=== PATIENT | male | born 1990 | race Caucasian/White ===

== ENCOUNTER 2024-11-12 12:31 | Emergency (ER) | payer OTHER, SELFPAY ==
[2024-11-12 12:37] VITALS: BP 138/90
[2024-11-12 13:12] LABS: % Basophils 0.6 % (0-2); % Eosinophils 2.8 % (0-6); % Immature Granulocytes 0.2 % (0-0.5); % Lymphocytes 46.4 % (20.5-51.1); % Monocytes 9.3 % (1.7-9.3); % Neutrophils 40.7 % (42.2-75.2); Absolute Eosinophils 0.1 10^3/uL (0-0.7); Absolute Lymphocytes 2.2 10^3/uL (1.2-3.4); Absolute Monocytes 0.4 10^3/uL (0.1-0.6); Absolute Neutrophils 1.9 10^3/uL (1.4-6.5); Hemoglobin 13.5 g/dL (13.0-18.0); Mean Corp Hgb Conc. 34.6 g/dL (33.0-37.0); Mean Corpuscular Hgb 30.3 pg (27.0-31.0); Mean Corpuscular Volume 87.4 fL (80.0-94.0); Mean Platelet Volume 9.5 fL (7.4-10.4); Nucleated Red Blood Cells % 0 % (-); Platelet Count 229 10^3/uL (130-400); Red Blood Cell Count 4.46 10^6/uL (4.70-6.10); Red Cell Dist. Width 12.4 % (11.5-14.5); White Blood Cell Count 4.6 10^3/uL (4.8-10.8)
[2024-11-12 13:28] LABS: ALT (SGPT) 59 U/L (0-50); AST (SGOT) 50 U/L (17-59); Albumin 4.6 g/dl (3.5-5.0); Alkaline Phosphatase 76 U/L (38-126); Blood Urea Nitrogen 17 mg/dl (9-20); Calcium 9.1 mg/dl (8.4-10.2); Carbon Dioxide 28 mmol/L (22-30); Chloride 102 mmol/L (98-107); Glucose 111 mg/dl (70-99); Potassium 4.1 mmol/L (3.5-5.1); Sodium 138 mmol/L (135-145); Total Bilirubin 0.3 mg/dl (0.2-1.3); Total Protein 7.3 g/dl (6.3-8.2); eGFR > 60.00
[2024-11-12 13:50] VITALS: BP 128/68
[2024-11-12 13:52] VITALS: BMI 37.1
--- NOTE | 2024-11-12 14:04 | ED.GENMED ---
History of Present Illness
General
Chief Complaint: Dizziness
Source: patient
Exam Limitations: none
Time Seen by Provider: 11/12/24 13:50
History of Present Illness
History of Present Illness:
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 He was not physically exerting himself during this time. He does vape. He drinks alcohol daily
and 2 cups of coffee daily. He states his palpitations have resolved but he still notes some discomfort in the chest and left arm. He denies any pleuritic component. No recent travel or surgery. No leg swelling or calf pain. No. During this
episode he was diaphoretic and lightheaded.
Phy Exam
Physical Exam
Physical Exam:
General: Well-appearing male no acute respiratory distress
HEENT: Normocephalic atraumatic
Heart: Regular rate and rhythm no murmurs
Lungs: Clear no wheeze or rales
Abdomen is soft nontender nondistended no guarding or rebound
Extremities: No cyanosis or edema
Skin: Warm no rash
Course
Orders/Labs/Results
Orders:
Orders
11/12/24 12:33
ECG [Electrocardiogram (*1)] Urgent
Reason for Study: Palpitations
EKG- Treatment ONCE
11/12/24 12:51
Complete Blood Count/With Diff Urgent
Comprehensive Metabolic Panel Urgent
11/12/24 14:04
CR Chest - 2 Views Urgent
Comment:
Reason For Exam: chest pain
11/12/24 14:13
TSH Reflex To Free T4 Urgent
Troponin I Urgent
11/12/24 16:23
Troponin I Urgent
Abnormal Lab Results
11/12/24
12:51
WBC 4.6 L 10^3/uL
(4.8-10.8)
RBC 4.46 L 10^6/uL
(4.70-6.10)
Neutrophils % 40.7 L %
(42.2-75.2)
Glucose 111 H mg/dl
(70-99)
ALT 59 H U/L
(0-50)
11/12/24 12:51
11/12/24 12:51
Vital Signs
Initial and Last Documented VS:
Initial Vital Signs
Temp Pulse Resp BP Pulse Ox
97.7 F 75 20 138/90 99
11/12/24 12:37 11/12/24 12:37 11/12/24 12:37 11/12/24 12:37 11/12/24 12:37
Last Documented Vital Signs
Temp Pulse Resp BP Pulse Ox
97.7 F 65 12 109/63 96
11/12/24 12:37 11/12/24 17:00 11/12/24 17:00 11/12/24 17:00 11/12/24 17:00
MDM/Problems Addressed
Differential Diagnosis Includes:
Episode of chest pain palpitations left arm pain. Consider arrhythmia versus electrolyte abnormality versus thyroid disorder ACS. No PE risk factors. Low risk for PE and clinically is stable. Do not suspect PE symptoms are resolving dissection
unlikely.
EKG shows sinus rhythm without ischemic changes. Vital signs currently stable. Will check troponin TSH and chest x-ray and keep on monitor
*Critical Care Note
Total Time (30-74mins, 75-104mins- exclusive of procedures): Not Applicable
Update Note
Update Note:
Initial and repeat troponin both undetectable. Chest x-ray clear. No arrhythmias noted on the monitor. No indication for admission but will advise follow-up with family doctor for recheck of palpitations. Recommending staying hydrated
ED Attending Note
-
Portions of this chart may have been created with voice recognition software.� Occasional wrong word or��sound alike� substitutions may have occurred due to the inherent limitations of voice recognition software.
Discharge Plan
Departure
Patient Disposition: Home (Routine Discharge)
Date of Disposition: 11/12/24
Time of Disposition: 17:26
Patient with high blood pressure during this ER visit?: No
Discharge Problem:
Palpitations
Instructions: Palpitations
Prescriptions:
No Action
buprenorphine-naloxone [Suboxone] 8-2 mg Film
2 film BUCCAL DAILY
Referrals:
Ralf Powell DO [Family Provider] -
Activity Restrictions/Additional Instructions:
Stay hydrated peer return here for worsening symptoms. Follow-up with your family doctor otherwise.
Interventions
Interventions:
*Risk Screen - Suicide Last Done: 11/12/24 12:37
*General Assessment Last Done: 11/12/24 13:52
*Neglect/Abuse Screening Last Done: 11/12/24 12:37
ED- Fall Risk Assessment Last Done: 11/12/24 15:27
*ED COVID-19 Vaccine History Last Done: 11/12/24 13:42
ED- Cardiac Assessment Last Done: 11/12/24 15:27
ED- Neurological Assessment Last Done: 11/12/24 15:27
ED Swallowing Screen Last Done: 11/12/24 13:42
Discharge Date and Time
Print Language: ESTONIAN
[2024-11-12 14:50] LABS: Troponin I < 0.012 ng/ml
[2024-11-12 15:16] LABS: TSH Reflex To Free T4 0.93 uIU/ml (0.47-4.68)
[2024-11-12 15:23] VITALS: BP 102/58
--- NOTE | 2024-11-12 15:36 | EDRN ---
Pt says at 1145 this morning he was standing at work and developed dizziness, L arm pain, diaphoresis and pounding in his chest 'I thought I was having a heart attack.' No hx of similar symptoms. Symptoms lasted about 30 minutes. Pt is on
suboxone daily and vapes. Pt denies abd pain, n/v, fever/chills/cough, weakness, urinary symptoms.
[2024-11-12 16:00] VITALS: BP 105/67
[2024-11-12 16:53] LABS: Troponin I < 0.012 ng/ml
[2024-11-12 17:00] VITALS: BP 109/63
== END 2024-11-12 17:45 | disposition home or self-care (01) ==
LOC: EMR 12:31
PROVIDERS: Emergency Medicine; Physician Assistant; EMERGENCY PHYSICIAN Student in an Organized Health Care Education/Training Program; FAMILY PHYSICIAN Internal Medicine
DX: R00.2 Palpitations (principal)
CPT/HCPCS: 99283; 71046; 80053; 84443; 84484; 85025; 93005